=== PATIENT | male | born 2005 | race Caucasian/White ===

== ENCOUNTER → 2024-06-11 16:39 | Outpatient (CLI) | payer OTHER, SELFPAY ==
[2024-06-11 17:22] LABS: Influenza A - CEPHEID Flu A POSITIVE (NEGATIVE); Influenza B - CEPHEID Flu B NEGATIVE (NEGATIVE); Respiratory Syncytial Virus Negative (Negative)
[2024-06-11 17:23] LABS: COVID-19 CEPHEID 4-PLEX PCR Negative (Negative)
== END ==
PROVIDERS: Visit Provider Nurse Practitioner Family
DX: R05.9 Cough, unspecified (principal)
CPT/HCPCS: 0241U